=== PATIENT | male | born 1950 | race Two or more races ===

== ENCOUNTER 2022-11-13 06:31 | Emergency (ER) | payer MEDICARE, OTHER ==
[~2022-11-13] VITALS: Ht 175.3 cm; Wt 100.0 kg
[2022-11-13 06:34] VITALS: TEMP 97.8
[2022-11-13] MEDS ORDERED: dexamethasone sod phosphate 10mg/ml inj IV STA (07:23)
[2022-11-13 07:24] LABS: ALANINE AMINOTRANSFERASE 44 U/L (12-78); ALBUMIN 3.7 G/DL (3.4-5.0); ALBUMIN/GLOBULIN RATIO 1.1 (1.1-1.5); ALKALINE PHOSPHATASE 54 IU/L (46-116); ANION GAP 8 (8-16); ASPARTATE AMINO TRANSFERASE 32 U/L (10-37); BILIRUBIN,TOTAL 0.6 MG/DL (0.1-1.0); BLOOD UREA NITROGEN 10 MG/DL (7-18); BUN/CREATININE RATIO 12.7 (10.0-20.0); CALCIUM 8.8 MG/DL (8.5-10.1); CHLORIDE 103 MMOL/L (99-107); CREATININE 0.79 MG/DL (0.60-1.10); GLUCOSE 174 MG/DL (70-104); POTASSIUM 3.9 MMOL/L (3.5-5.1); SODIUM 138 MMOL/L (135-145); TOTAL CARBON DIOXIDE 26.8 MMOL/L (24-32); TOTAL PROTEIN 7.2 G/DL (6.4-8.2); eCRCL 83 ML/MIN; eGFR > 90 ML/MIN
[2022-11-13] MEDS ORDERED: CefTRIAXone 2gm/D5W 50ml BAG 50 ML IV ONE (07:25)
[2022-11-13] MEDS ORDERED: ipratropium/albuterol 3ml nebule NEB ONE (07:25)
[2022-11-13] MEDS ORDERED: normal saline 1000ml 1,000 ML IV ONE (07:25)
[2022-11-13 07:31] LABS: PRO BRAIN NATRIURETIC PEPTIDE 1292 PG/ML (0-125)
[2022-11-13 07:51] LABS: BASOPHILS # (AUTO) 0.2 X10'3 (0-0.2); BASOPHILS % (AUTO) 1.1 % (0-1); EOSINOPHILS # (AUTO) 0.1 X10'3 (0-0.9); EOSINOPHILS % (AUTO) 0.6 % (0-6); HEMOGLOBIN 14.3 g/dl (14.0-17.9); LYMPHOCYTES # (AUTO) 1.4 X10'3 (1.1-4.8); LYMPHOCYTES % (AUTO) 8.5 % (21-51); MEAN CORPUSCULAR HGB CONC 32.5 g/dL (33.0-36.5); MEAN CORPUSCULAR VOLUME 89.2 FL (78-98); MEAN PLATELET VOLUME 9.3 FL (7.4-10.4); MONOCYTES # (AUTO) 1.3 X10'3 (0-0.9); MONOCYTES % (AUTO) 7.6 % (2-12); NEUTROPHILS # (AUTO) 13.5 X10'3 (1.8-7.7); NEUTROPHILS % (AUTO) 82.2 % (42-75); PLATELET COUNT 173 X10'3 (140-440); RED BLOOD COUNT 4.93 X10'6 (4.70-6.10); RED CELL DISTRIBUTION WIDTH 14.4 % (11.5-14.5); WHITE BLOOD COUNT 16.4 X10'3 (4.5-11.0)
[2022-11-13 08:02] VITALS: PULSE 96; PULSE 99; RESP 18; RESP 24; O2SAT 98
[2022-11-13] MEDS ORDERED: azithromycin/NS 500mg/250ml 250 ML IV STA (08:03)
[2022-11-13] MEDS ORDERED: VANCOMYCIN 1,500MG inj. 1,500 MG in normal saline 500ml IV soln 300 ML IV ONE (08:15)
[2022-11-13] MEDS ORDERED: DOXY100C43 PO (11:20)
[2022-11-13] MEDS ORDERED: AMOX-580 PO (11:20)
--- NOTE | 2022-11-13 11:29 | NUR ---
Per removed 2L NC. Pt O2 stats between 92-90.
[2022-11-13 13:17] VITALS: BP 123/59; PULSE 83; RESP 18; O2SAT 90
== END 2022-11-13 13:19 | disposition home or self-care (01) ==
LOC: ER 06:32
DX: J18.9 Pneumonia, unspecified organism (principal); Z20.822 Contact with and (suspected) exposure to COVID-19; R07.89 Other chest pain; J44.9 Chronic obstructive pulmonary disease, unspecified; Z79.2 Long term (current) use of antibiotics
CPT/HCPCS: 36415; 71045; 80053; 83880; 84145; 84484; 85025; 87811; 93005; 94640; 96365; 96366; 96368; 96375; 99285; J0456; J0696; J1100; J3370; J7030; J7040; 94760